=== PATIENT | female | born 1945 ===

== ENCOUNTER 2025-05-04 17:03 | Outpatient (REF) | payer MEDICARE, SELFPAY ==
[2025-05-04 21:35] LABS: ALT 21 U/L (14-59); AST 19 U/L (15-37); Albumin 4.1 g/dL (3.4-5.0); Alkaline Phosphatase 143 U/L (46-116); Anion Gap 11.2 mmol/L (3-11); BUN 16 mg/dL (7-18); Bilirubin, Total 0.3 mg/dL (0.2-1.0); CO2 25.8 mmol/L (21.0-32.0); Calcium 10.3 mg/dL (8.5-10.1); Calculated LDL 213 mg/dL (<100); Chloride 97 mmol/L (98-107); Cholesterol 313 mg/dL (<200); Estimated GFR 73.98 (mL/min/1.73m2); Glucose 125 mg/dL (74-106); HDL Cholesterol 83 mg/dL (>or=50); Potassium 3.7 mmol/L (3.5-5.1); Sodium 134 mmol/L (136-145); Total Protein 8.8 g/dL (6.4-8.2); Triglyceride 88 mg/dL (<150)
[2025-05-04 21:50] LABS: Hemoglobin A1C 10.1 % (<5.7)
[2025-05-05 04:05] LABS: HCT 41.1 % (36.0-46.0); HGB 13.3 g/dL (11.2-15.7); MCH 27.8 pg (27.0-33.0); MCHC 32.4 % (32.0-36.0); MCV 86 fL (80-95); MPV 10.1 fL (8.0-11.0); Platelet Count 342 10^3/uL (130-400); RBC 4.79 10^6/uL (3.93-5.22); RDW 14.2 % (11.7-14.6); RDW-SD 44.6 fL; WBC 9.97 10^3/uL (4.4-10.8)
== END 2025-05-04 17:04 | disposition home or self-care (01) ==
LOC: NCHCN 17:03
PROVIDERS: Visit Provider Internal Medicine
DX: E11.9 Type 2 diabetes mellitus without complications (principal)
CPT/HCPCS: 80053; 80061; 85027; 83036

== ENCOUNTER 2025-06-06 15:40 | Outpatient (REF) | payer MEDICARE, SELFPAY ==
[2025-06-06 21:48] LABS: Microalb ug/mg Crea 3.5 ug/mg Cr
== END 2025-06-06 15:41 | disposition home or self-care (01) ==
LOC: NCHCN 15:40
PROVIDERS: Visit Provider Internal Medicine
DX: E11.9 Type 2 diabetes mellitus without complications (principal)
CPT/HCPCS: 82043; 82570